=== PATIENT | male | born 2000 | race Caucasian/White ===

== ENCOUNTER 2021-08-01 22:17 | Emergency (ER) | payer MEDICAID, OTHER ==
[~2021-08-01] VITALS: Ht 185.4 cm; Wt 59.9 kg
[2021-08-01 22:17] VITALS: BP_SYST 142
== END 2021-08-01 22:34 ==
LOC: SED 22:17
DX: Z00.00 Encounter for general adult medical examination without abnormal findings (principal)
CPT/HCPCS: 99283